=== PATIENT | female | born 1990 | race Caucasian/White ===

== ENCOUNTER 2017-02-25 06:49 | Emergency (ER) | payer OTHER ==
[~2017-02-25] VITALS: Ht 160 cm; Wt 54.4 kg
[2017-02-25 07:00] VITALS: Ht 160 cm; Wt 54.4 kg
[2017-02-25 07:45] VITALS: BP 115/68
== END 2017-02-25 08:01 | disposition home or self-care (01) ==
LOC: ED 06:49
DX: Z77.21 Contact with and (suspected) exposure to potentially hazardous body fluids (principal)